=== PATIENT | male | born 1955 | race Two or more races ===

== ENCOUNTER 2018-09-28 18:04 | Emergency (ER) | payer OTHER ==
[~2018-09-28] VITALS: Ht 165.1 cm; Wt 56.7 kg
== END 2018-09-28 20:54 | disposition home or self-care (01) ==
LOC: ER 18:04
DX: R31.0 Gross hematuria (principal)

== ENCOUNTER 2018-10-01 19:50 | Emergency (ER) | payer OTHER ==
[~2018-10-01] VITALS: Ht 165.1 cm; Wt 56.7 kg
[2018-10-02] MEDS ORDERED: CEFUROXIME500 MG PO (01:36)
== END 2018-10-02 01:49 | disposition home or self-care (01) ==
LOC: ER 19:50
DX: N39.0 Urinary tract infection, site not specified (principal); N41.9 Inflammatory disease of prostate, unspecified

== ENCOUNTER 2022-01-28 02:33 | Emergency (ER) | payer OTHER ==
[~2022-01-28] VITALS: Ht 165.1 cm; Wt 56.7 kg
[~2022-01-28 02:33] MED LIST: CEFUROXIME500 MG PO
[2022-01-28] MEDS ORDERED: ATORVASTATIN CA40 MG PO (02:56)
[2022-01-28] MEDS ORDERED: CLOPIDOGREL BIS75 MG PO (02:56)
[2022-01-28] MEDS ORDERED: MACRODANTIN100 MG PO (02:56)
[2022-01-28] MEDS ORDERED: PYRIDIUM200 MG PO (06:58)
== END 2022-01-28 07:37 | disposition home or self-care (01) ==
LOC: ER 02:33
DX: N39.0 Urinary tract infection, site not specified (principal); B96.89 Other specified bacterial agents as the cause of diseases classified elsewhere; Z88.8 Allergy status to other drugs, medicaments and biological substances